=== PATIENT | female | born 1980 ===

== ENCOUNTER 2018-02-17 09:19 | Emergency (ER) | payer OTHER ==
[~2018-02-17] VITALS: Ht 154.9 cm; Wt 86.6 kg
== END 2018-02-17 11:00 | disposition home or self-care (01) ==
LOC: ER 09:19
DX: M54.5 Low back pain (principal)

== ENCOUNTER 2018-05-29 14:25 | Emergency (ER) | payer OTHER ==
[~2018-05-29] VITALS: Ht 152.4 cm; Wt 83.9 kg
== END 2018-05-29 17:41 | disposition home or self-care (01) ==
LOC: ER 14:25
DX: S56.811A Strain of other muscles, fascia and tendons at forearm level, right arm, initial encounter (principal); M25.511 Pain in right shoulder; X50.9XXA Other and unspecified overexertion or strenuous movements or postures, initial encounter; Y93.89 Activity, other specified; Y92.89 Other specified places as the place of occurrence of the external cause; Y99.8 Other external cause status

== ENCOUNTER 2020-11-11 10:14 | Emergency (ER) | payer OTHER ==
[~2020-11-11] VITALS: Ht 152.4 cm; Wt 81.6 kg
[2020-11-11] MEDS ORDERED: ZESTRIL2.5 MG PO (10:21)
[2020-11-11] MEDS ORDERED: METFORMIN HCL500 MG (10:22)
[2020-11-11] MEDS ORDERED: DICLOFENAC POTA50 MG PO (12:44)
[2020-11-11] MEDS ORDERED: CYCLOBENZAPRINE10 MG PO (12:44)
== END 2020-11-11 13:21 | disposition home or self-care (01) ==
LOC: ER 10:14
DX: B34.9 Viral infection, unspecified (principal); M54.12 Radiculopathy, cervical region